=== PATIENT | male | born 1955 | race African-American/Black ===

== ENCOUNTER 2016-11-03 20:01 | Emergency (ER) | payer MEDICAID ==
[~2016-11-03] VITALS: Ht 177.8 cm; Wt 110.0 kg
[~2016-11-03 20:01] MED LIST: LISI10TA5 PO; TIOT18CA3 IH
[2016-11-03 21:46] LABS: HEMOGLOBIN. 13.2 g/dL (14.0-18.0); MEAN CORPUSCULAR HEMOGLOBIN 34.1 pg (28.0-32.0); MEAN CORPUSCULAR HGB CONC 33.1 g/dL (31.0-37.0); MEAN PLATELET VOLUME 10.1 fl (7.4-10.4); PLATELET 84 x1000/uL (130-400); RED BLOOD CELL COUNT 3.88 mill/uL (4.7-6.1); RED CELL DISTRIBUTION WIDTH 13.6 % (11.6-14.6); WHITE BLOOD COUNT 8.4 x1000/uL (4.5-11.0)
[2016-11-03 21:49] LABS: DIFFERENTIAL COMMENT 1
[2016-11-03 21:53] LABS: INR 1.2; PROTHROMBIN TIME 12.4 sec
[2016-11-03 22:02] LABS: ALANINE AMINOTRANSFERASE 78 IU/L (13-61); ALBUMIN 2.5 g/dL (3.4-5.0); ANION GAP 10; CALCIUM 8.4 mg/dL (8.5-10.1); CARBON DIOXIDE 29 mEq/L (21-32); CHLORIDE 107 mEq/L (98-107); INDEX HEMOLYSI 1 (1-3); INDEX ICTERIC 1 (1-4); INDEX LIPEMIC 1 (1-3); NT PRO B-TYPE NATRIURETIC PEP 276 pg/mL (5-125); TROPONIN I 0.02 ng/mL (0.00-0.04); UREA NITROGEN BLOOD 14 mg/dL (7-21); eGFR > 60 mL/min (>60)
[2016-11-03] MEDS ORDERED: KETOROLAC 30MG/ML VIAL IV ONE (22:15)
[2016-11-03 22:33] LABS: PLATELET ESTIMATE DECREASED
[2016-11-03] MEDS ORDERED: ONDANSETRON HCL 4MG/2ML VIAL IV ONE (23:30)
[2016-11-04] MEDS ORDERED: FUROSEMIDE 20MG/2ML VIAL IVP ONE (00:45)
[2016-11-04] MEDS ORDERED: ACETAMINOPHEN WITH CODEINE 300/30MG TABLET PO ONE (00:45)
[2016-11-04] MEDS ORDERED: FUROSEMIDE 40MG TABLET PO NR (01:00)
[2016-11-04] MEDS ORDERED: FUROSEMIDE 20MG TABLET PO ONE (01:00)
[2016-11-04 01:06] VITALS: BP 143/75
== END 2016-11-04 01:10 | disposition home or self-care (01) ==
LOC: ER 20:02
DX: R18.8 Other ascites (principal); K76.89 Other specified diseases of liver; I10 Essential (primary) hypertension; F17.210 Nicotine dependence, cigarettes, uncomplicated; Z79.899 Other long term (current) drug therapy
CPT/HCPCS: 36415; 71010; 80053; 83880; 84484; 85025; 85610; 93005; 96374; 96375; 99285; J1885; J2405; Z7610

== ENCOUNTER 2016-11-06 00:53 | Emergency (ER) | payer MEDICAID ==
[~2016-11-06] VITALS: Ht 182.9 cm; Wt 132.0 kg
[2016-11-06] MEDS ORDERED: MORPHINE SULFATE 4 MG/ML CPJ (NOT FOR IM USE) IV STA (02:15)
[2016-11-06] MEDS ORDERED: ONDANSETRON HCL 4MG/2ML VIAL IV STA (02:15)
[2016-11-06 02:45] LABS: CHLORIDE 107 mEq/L (98-107); INDEX HEMOLYSI 1 (1-3); INDEX ICTERIC 1 (1-4); INDEX LIPEMIC 1 (1-3)
[2016-11-06 02:54] LABS: ALANINE AMINOTRANSFERASE 73 IU/L (13-61); ALBUMIN 2.2 g/dL (3.4-5.0); ANION GAP 9; CARBON DIOXIDE 30 mEq/L (21-32); LIPASE 338 IU/L (73-393); UREA NITROGEN BLOOD 20 mg/dL (7-21); eGFR > 60 mL/min (>60)
[2016-11-06 03:01] LABS: HEMATOCRIT. 36.1 % (42.0-52.0); MEAN CORPUSCULAR HEMOGLOBIN 33.5 pg (28.0-32.0); MEAN CORPUSCULAR HGB CONC 33.3 g/dL (31.0-37.0); MEAN CORPUSCULAR VOLUME 100.9 fL (80.0-94.0); MEAN PLATELET VOLUME 9.8 fl (7.4-10.4); PLATELET 113 x1000/uL (130-400); RED BLOOD CELL COUNT 3.58 mill/uL (4.7-6.1); RED CELL DISTRIBUTION WIDTH 13.4 % (11.6-14.6); WHITE BLOOD COUNT 8.2 x1000/uL (4.5-11.0)
[2016-11-06 03:05] LABS: DIFFERENTIAL COMMENT 1
[2016-11-06 03:07] LABS: INR 1.3; PROTHROMBIN TIME 13.6 sec
[2016-11-06 06:49] VITALS: BP 128/71
[2016-11-06 06:55] LABS: PLATELET ESTIMATE SLIGHTLY DECREASED
[2016-11-06] MEDS ORDERED: IOHEXOL-300 100 ML BOTTLE ONE (10:50)
[2016-11-06] MEDS ORDERED: SODIUM CHLORIDE 0.9% 10ML VIAL ONE (10:50)
[2016-11-09] MEDS ORDERED: FURO40TA5 PO (08:18)
== END 2016-11-06 06:59 | disposition home or self-care (01) ==
LOC: ER 01:00
DX: R07.89 Other chest pain (principal); I10 Essential (primary) hypertension; K70.31 Alcoholic cirrhosis of liver with ascites; Z86.19 Personal history of other infectious and parasitic diseases
CPT/HCPCS: 36415; 71260; 74177; 80053; 83690; 85025; 85610; 96374; 96375; 99285; A4216; J2270; J2405; Q9967

== ENCOUNTER 2016-11-07 12:18 | Emergency (ER) | payer MEDICAID ==
[~2016-11-07] VITALS: Ht 177.8 cm; Wt 118.0 kg
[2016-11-07 13:21] LABS: BASOPHILS % 0.2 % (0.0-2.0); DIFFERENTIAL COMMENT 0; EOSINOPHILS % 0.2 % (0.0-5.0); HEMATOCRIT. 26.6 % (42.0-52.0); HEMOGLOBIN. 8.6 g/dL (14.0-18.0); LYMPHOCYTES % 8.3 % (20.0-50.0); MEAN CORPUSCULAR HEMOGLOBIN 33.3 pg (28.0-32.0); MEAN CORPUSCULAR HGB CONC 32.3 g/dL (31.0-37.0); MEAN CORPUSCULAR VOLUME 103.1 fL (80.0-94.0); MEAN PLATELET VOLUME 9.7 fl (7.4-10.4); MONOCYTES % 8.9 % (2.0-8.0); NEUTROPHILS % 82.4 % (40.0-76.0); PLATELET 158 x1000/uL (130-400); RED BLOOD CELL COUNT 2.58 mill/uL (4.7-6.1); RED CELL DISTRIBUTION WIDTH 13.4 % (11.6-14.6); WHITE BLOOD COUNT 15.3 x1000/uL (4.5-11.0)
[2016-11-07 13:26] LABS: CHLORIDE 107 mEq/L (98-107); INDEX HEMOLYSI 1 (1-3); INDEX ICTERIC 2 (1-4); INDEX LIPEMIC 1 (1-3)
[2016-11-07 13:29] LABS: ALBUMIN 2.1 g/dL (3.4-5.0); ANION GAP 17; CALCIUM 7.7 mg/dL (8.5-10.1); CARBON DIOXIDE 23 mEq/L (21-32); UREA NITROGEN BLOOD 40 mg/dL (7-21)
[2016-11-07 13:35] LABS: ALANINE AMINOTRANSFERASE 104 IU/L (13-61); INR 1.6; PROTHROMBIN TIME 16.5 sec; eGFR > 60 mL/min (>60)
[2016-11-07] MEDS ORDERED: MORPHINE SULFATE 4 MG/ML CPJ (NOT FOR IM USE) IV ONE (15:45)
[2016-11-07 16:06] LABS: BODY FLUID MONOCYTES 67 %
[2016-11-07 16:08] LABS: BODY FLUID WBC 177 /cu mm (0-200)
[2016-11-07 17:33] LABS: BG BASE EXCESS -1.5 mmol/L (-2.0-2.0); BG CARBOXYHEMOGLOBIN 0.9 % (0.5-1.5); BG DEOXYHEMOGLOBIN 13.8 % (0.0-5.0); BG FRACTION INSPIRED OXYGEN 21; BG HCO3 ACT 22.2 mmol/L (22.0-26.0); BG METHEMOGLOBIN 0.3 % (0.0-1.5); BG PH 7.445 (7.350-7.450); BG PO2 53.4 mmHg (75.0-100.0); BG SAMPLE SITE RIGHT BRACHIAL; BG TOTAL HEMOGLOBIN 9.3 g/dL (12.0-18.0); BG VENT MODE ROOM AIR
[2016-11-07 19:00] VITALS: BP 119/52
[2016-11-09] MEDS ORDERED: FURO40TA5 PO (08:18)
== END 2016-11-07 19:14 | disposition home or self-care (01) ==
LOC: ER 12:40
DX: R18.8 Other ascites (principal); R06.00 Dyspnea, unspecified; Z79.899 Other long term (current) drug therapy; I10 Essential (primary) hypertension; B19.20 Unspecified viral hepatitis C without hepatic coma
CPT/HCPCS: 36415; 36600; 49083; 71010; 80053; 82375; 82805; 85025; 85610; 87070; 87205; 89050; 96374; 99285; J2270; Z7610